=== PATIENT | male | born 1935 | race Caucasian/White ===

== ENCOUNTER → 2017-02-09 | Day surgery (SDC) | payer MEDICARE, OTHER ==
[~2017-02-09] VITALS: Ht 182.9 cm; Wt 70.9 kg
[2017-02-09 08:02] LABS: HCT 40.7 % (42.0-52.0); HGB 13.4 g/dl (13.2-18.0); MCH 29.4 pg (25.0-31.0); MCHC 32.9 g/dL (32.0-36.0); MCV 89.3 fL (78.0-100.0); MPV 8.7 fL (6.0-9.5); RBC 4.56 M/uL (4.70-6.00); RDW 14.9 % (11.5-14.0); WBC 7.3 K/uL (4.0-10.5)
[2017-02-09 08:10] LABS: INR 1.15 (0.9-1.2); PROTHROMBIN TIME 14.3 SECONDS (11.7-14.0); PTT 36.4 SECONDS (23.2-31.4)
[2017-02-09 08:16] LABS: CREATININE 1.4 mg/dL (0.7-1.2); POTASSIUM 5.5 mmol/L (3.5-5.1)
== END | disposition home or self-care (01) ==
LOC: FAS 01-26 07:30
PROVIDERS: Surgery
DX: K40.90 Unilateral inguinal hernia, without obstruction or gangrene, not specified as recurrent (principal); D64.9 Anemia, unspecified; K21.9 Gastro-esophageal reflux disease without esophagitis; E03.9 Hypothyroidism, unspecified; M19.90 Unspecified osteoarthritis, unspecified site; E78.00 Pure hypercholesterolemia, unspecified; I10 Essential (primary) hypertension; I48.91 Unspecified atrial fibrillation; F32.9 Major depressive disorder, single episode, unspecified; I25.10 Atherosclerotic heart disease of native coronary artery without angina pectoris; E80.4 Gilbert syndrome; Z88.0 Allergy status to penicillin; Z88.2 Allergy status to sulfonamides; Z98.890 Other specified postprocedural states; Z95.1 Presence of aortocoronary bypass graft; Z87.891 Personal history of nicotine dependence; Z79.01 Long term (current) use of anticoagulants; Z79.899 Other long term (current) drug therapy; Z86.010 Personal history of colon polyps; Z87.442 Personal history of urinary calculi
CPT/HCPCS: 36415; 80048; 84132; 85610; 85730; 88302; 88304; C1781; J2405; J2704; J2710; J3010